=== PATIENT | female | born 1935 | race Hispanic/Latino ===

== ENCOUNTER → 2018-12-10 | Outpatient (CLI) | payer MEDICARE ==
[~2018-12-10] MED LIST: LIDOCAINE HCL 2% JELLY 5 ML ONE
[2018-12-10 12:17] VITALS: BP 184/114
== END | disposition home or self-care (01) ==
LOC: WHH 09:30
PROVIDERS: ATTEND Family Medicine
DX: E11.621 Type 2 diabetes mellitus with foot ulcer (principal); L97.512 Non-pressure chronic ulcer of other part of right foot with fat layer exposed; I70.235 Atherosclerosis of native arteries of right leg with ulceration of other part of foot; E11.52 Type 2 diabetes mellitus with diabetic peripheral angiopathy with gangrene; I96 Gangrene, not elsewhere classified; I10 Essential (primary) hypertension; E78.5 Hyperlipidemia, unspecified; E07.9 Disorder of thyroid, unspecified; Z88.0 Allergy status to penicillin
CPT/HCPCS: 11042; 82948; A4450; A6021; G0463

== ENCOUNTER → 2018-12-12 | Outpatient (CLI) | payer MEDICARE | END | disposition home or self-care (01) | LOC: RAH 10:23 | PROVIDERS: ATTEND Family Medicine | DX: E11.621 Type 2 diabetes mellitus with foot ulcer (principal); L97.519 Non-pressure chronic ulcer of other part of right foot with unspecified severity; M89.8X7 Other specified disorders of bone, ankle and foot | CPT/HCPCS: 73718 ==

== ENCOUNTER → 2018-12-17 | Outpatient (CLI) | payer MEDICARE ==
[2018-12-17 11:19] LABS: BASOPHILS % (AUTO) 0.6 % (0.0-5.0); EOSINOPHILS % (AUTO) 2.5 % (0.0-8.0); HEMATOCRIT 29.7 % (36-48); LYMPHOCYTES % (AUTO) 25.5 % (21.0-51.0); MEAN CORPUSCULAR HGB CONC 33.4 g/dL (32.0-36.0); MEAN CORPUSCULAR VOLUME 89.8 fL (79-99); MONOCYTES % (AUTO) 5.6 % (3.0-13.0); NEUTROPHILS % (AUTO) 65.8 % (40.0-77.0); PLATELET COUNT (AUTO) 284 K/uL (130-400); RED CELL DISTRIBUTION WIDTH 14.3 % (11.0-15.5); WHITE BLOOD COUNT (AUTO) 9.6 K/uL (4.8-10.8)
[2018-12-17 11:27] LABS: HEMOGLOBIN A1C 10.6 % (4.0-6.0)
[2018-12-17 11:38] LABS: ALBUMIN 2.9 g/dL (3.5-5.0); BILIRUBIN,TOTAL 0.3 mg/dL (0.2-1.0); CREATININE 1.5 mg/dL (0.5-1.5); CRP QUANTITATIVE 34.4 mg/L (0.00-9.0); POTASSIUM 4.4 mmol/L (3.5-5.1); TOTAL PROTEIN, SERUM 7.9 g/dL (6.0-8.3)
[2018-12-17 12:35] LABS: ERYTHROCYTE SEDIMENTATION RATE 111 MM/HR (0-30)
[2018-12-17 12:58] VITALS: BP 186/59
== END | disposition home or self-care (01) ==
LOC: WHH 08:30
PROVIDERS: ATTEND Family Medicine
DX: E11.621 Type 2 diabetes mellitus with foot ulcer (principal); L97.511 Non-pressure chronic ulcer of other part of right foot limited to breakdown of skin; I70.235 Atherosclerosis of native arteries of right leg with ulceration of other part of foot; M89.8X7 Other specified disorders of bone, ankle and foot; E11.52 Type 2 diabetes mellitus with diabetic peripheral angiopathy with gangrene; I96 Gangrene, not elsewhere classified; I10 Essential (primary) hypertension; E78.5 Hyperlipidemia, unspecified; E07.9 Disorder of thyroid, unspecified; Z88.0 Allergy status to penicillin
CPT/HCPCS: 36415; 71046; 80053; 83036; 85025; 85651; 86140; 93005; G0463

== ENCOUNTER 2018-12-19 09:09 | Emergency (ER) | payer MEDICARE | END 2018-12-19 10:12 | disposition home or self-care (01) | LOC: EDH 09:09 | DX: M25.562 Pain in left knee (principal); E11.9 Type 2 diabetes mellitus without complications; I10 Essential (primary) hypertension; X50.1XXA Overexertion from prolonged static or awkward postures, initial encounter; Y93.89 Activity, other specified; Y92.89 Other specified places as the place of occurrence of the external cause; Y99.8 Other external cause status | CPT/HCPCS: 73562 ==

== ENCOUNTER → 2018-12-24 | Outpatient (CLI) | payer MEDICARE ==
[~2018-12-24] MED LIST changes: +ACET-2247 PO; +AMLO5TAB9 PO; +ASPI-555 PO; +ATEN25TA PO; +ATENOLOL 25 MG TABLET ONE; +CHLO25TA3 PO; +CLON0.1T2 PO; +DOCU-275 PO; +FERR325T22 PO; +LEVO100T12 PO; -LIDOCAINE HCL 2% JELLY 5 ML ONE; +LIDOCAINE/PRILOCAINE CREAM 5GM TUBE TP ONE; +LISI10TA7 PO; +METF-444 PO; +PIOG30TA70 PO; +POLY17PO4 PO; +renavite PO
[2018-12-24 14:51] VITALS: BP 156/53
== END | disposition home or self-care (01) ==
LOC: WHH 13:00
PROVIDERS: ATTEND Family Medicine
DX: E11.621 Type 2 diabetes mellitus with foot ulcer (principal); L97.512 Non-pressure chronic ulcer of other part of right foot with fat layer exposed; I70.235 Atherosclerosis of native arteries of right leg with ulceration of other part of foot; E11.52 Type 2 diabetes mellitus with diabetic peripheral angiopathy with gangrene; I96 Gangrene, not elsewhere classified; E11.69 Type 2 diabetes mellitus with other specified complication; M86.9 Osteomyelitis, unspecified; I10 Essential (primary) hypertension; E78.5 Hyperlipidemia, unspecified; E07.9 Disorder of thyroid, unspecified; M89.8X7 Other specified disorders of bone, ankle and foot
CPT/HCPCS: 11042; J3490

== ENCOUNTER → 2018-12-26 | Outpatient (CLI) | payer MEDICARE ==
[~2018-12-26] MED LIST changes: -ACET-2247 PO; -AMLO5TAB9 PO; -ASPI-555 PO; -ATEN25TA PO; -ATENOLOL 25 MG TABLET ONE; -CHLO25TA3 PO; -CLON0.1T2 PO; -DOCU-275 PO; -FERR325T22 PO; -LEVO100T12 PO; -LISI10TA7 PO; -METF-444 PO; -PIOG30TA70 PO; -POLY17PO4 PO; -renavite PO
[2018-12-26 13:54] VITALS: BP 153/47
== END | disposition home or self-care (01) ==
LOC: WHH 10:30
PROVIDERS: ATTEND Podiatrist Foot & Ankle Surgery
DX: E11.621 Type 2 diabetes mellitus with foot ulcer (principal); L97.511 Non-pressure chronic ulcer of other part of right foot limited to breakdown of skin; E11.52 Type 2 diabetes mellitus with diabetic peripheral angiopathy with gangrene; I96 Gangrene, not elsewhere classified; E11.69 Type 2 diabetes mellitus with other specified complication; M86.9 Osteomyelitis, unspecified; I10 Essential (primary) hypertension; E07.9 Disorder of thyroid, unspecified; E78.5 Hyperlipidemia, unspecified; M89.8X7 Other specified disorders of bone, ankle and foot; Z88.0 Allergy status to penicillin
CPT/HCPCS: G0463; J3490

== ENCOUNTER → 2018-12-31 | Outpatient (CLI) | payer MEDICARE ==
[2018-12-31 11:15] VITALS: BP 185/68
== END | disposition home or self-care (01) ==
LOC: WHH 10:00
PROVIDERS: ATTEND Family Medicine
DX: E11.621 Type 2 diabetes mellitus with foot ulcer (principal); L97.511 Non-pressure chronic ulcer of other part of right foot limited to breakdown of skin; E11.52 Type 2 diabetes mellitus with diabetic peripheral angiopathy with gangrene; I96 Gangrene, not elsewhere classified; E11.69 Type 2 diabetes mellitus with other specified complication; M86.9 Osteomyelitis, unspecified; I10 Essential (primary) hypertension; E78.5 Hyperlipidemia, unspecified; E07.9 Disorder of thyroid, unspecified; M89.8X7 Other specified disorders of bone, ankle and foot; Z88.0 Allergy status to penicillin
CPT/HCPCS: G0463

== ENCOUNTER → 2019-01-02 | Outpatient (CLI) | payer MEDICARE ==
[~2019-01-02] MED LIST changes: +AMLO5TAB9 PO; +ASPI-555 PO; +CHLO25TA3 PO; +FERR325T22 PO; +LEVO100T12 PO; -LIDOCAINE/PRILOCAINE CREAM 5GM TUBE TP ONE; +METF-444 PO; +PIOG30TA70 PO; +renavite PO
[2019-01-02 13:14] VITALS: BP 162/63
== END | disposition home or self-care (01) ==
LOC: WHH 09:25
PROVIDERS: ATTEND Podiatrist Foot & Ankle Surgery
DX: E11.621 Type 2 diabetes mellitus with foot ulcer (principal); L97.511 Non-pressure chronic ulcer of other part of right foot limited to breakdown of skin; E11.52 Type 2 diabetes mellitus with diabetic peripheral angiopathy with gangrene; I96 Gangrene, not elsewhere classified; E11.69 Type 2 diabetes mellitus with other specified complication; M86.9 Osteomyelitis, unspecified; E07.9 Disorder of thyroid, unspecified; E78.5 Hyperlipidemia, unspecified; M89.8X7 Other specified disorders of bone, ankle and foot; Z88.0 Allergy status to penicillin
CPT/HCPCS: G0463

== ENCOUNTER 2019-01-04 06:19 | Day surgery (SDC) | payer MEDICARE ==
[2019-01-02 11:58] LABS: BASOPHILS % (AUTO) 0.8 % (0.0-5.0); EOSINOPHILS % (AUTO) 1.6 % (0.0-8.0); HEMATOCRIT 26.6 % (36-48); LYMPHOCYTES % (AUTO) 17.4 % (21.0-51.0); MEAN CORPUSCULAR HEMOGLOBIN 29.6 pg (27.0-33.0); MEAN CORPUSCULAR HGB CONC 33.3 g/dL (32.0-36.0); MEAN CORPUSCULAR VOLUME 89.1 fL (79-99); MONOCYTES % (AUTO) 5.4 % (3.0-13.0); NEUTROPHILS % (AUTO) 74.8 % (40.0-77.0); PLATELET COUNT (AUTO) 465 K/uL (130-400); RED BLOOD CELL COUNT(AUTO) 2.98 MIL/uL (4.00-5.50); RED CELL DISTRIBUTION WIDTH 13.6 % (11.0-15.5); WHITE BLOOD COUNT (AUTO) 11.4 K/uL (4.8-10.8)
[2019-01-02 12:04] LABS: CREATININE 1.6 mg/dL (0.5-1.5)
[2019-01-02 13:06] VITALS: BP 145/69
--- NOTE | 2019-01-03 14:28 | NUR ---
LABS ABNORMAL LABS FAXED TO DR. BELCHER OFFICE PER HIS REQUEST, MESSAGE LEFT WITH THOMAS, AWAITING FOR FURTHER ORDERS
--- NOTE | 2019-01-03 14:32 | NUR ---
LABS PER DR. BELCHER NO FURTHER ORDERS ON THE LABS REPORTED. OK TO PROCEED WITH SX
--- NOTE | 2019-01-03 14:40 | NUR ---
ABN EKG REPORTED TO JESUS ALBERTO DUBOIS, NO NEW ORDERS.
--- NOTE | 2019-01-03 15:18 | NUR ---
reported abnormal labs to Doctor Wolf wbc 11.34, h/h 8.8/26.6, plt 465, na 134, bun 22, assistant associate full professor 1.6, gfr 33, no new orders okay to proceed from Anesthesia point of view.
[2019-01-04] VITALS (10 sets, daily range): BP systolic 135–188; BP diastolic 48–69
[~2019-01-04] VITALS: Ht 165.1 cm; Wt 56.7 kg
[2019-01-04] MEDS ORDERED: CLINDAMYCIN 900 MG/D5% WATER 50 ML IV ONE (06:31)
[2019-01-04] MEDS ORDERED: SODIUM CHLORIDE 0.9% 1000ML 1,000 ML IV ONE ×2 (06:31→07:50)
[2019-01-04] MEDS ORDERED: LIDOCAINE HCL 1% MDV 50ML VIAL ONE (06:33)
[2019-01-04] MEDS ORDERED: BUPIVACAINE/PF 0.5% 10ML VIAL ONE (06:33)
[2019-01-04] MEDS ORDERED: FENTANYL CITRATE PF 50 MCG/1 ML 2ML VIAL ONE (06:57)
[2019-01-04] MEDS ORDERED: MIDAZOLAM HCL 1 MG/ML 2ML VIAL ONE ×2 (06:57→07:03)
[2019-01-04] MEDS ORDERED: PROPOFOL 10 MG/ML 20ML VIAL IV ONE (06:57)
[2019-01-04] MEDS ORDERED: ONDANSETRON HCL 4 MG/2 ML VIAL ONE (07:21)
[2019-01-04] MEDS ORDERED: METF-444 PO (07:47)
[2019-01-04] MEDS ORDERED: ASPI-555 PO (07:47)
[2019-01-04] MEDS ORDERED: FERR325T22 PO (07:47)
[2019-01-04] MEDS ORDERED: PIOG30TA70 PO (07:47)
[2019-01-04] MEDS ORDERED: LEVO100T12 PO (07:47)
[2019-01-04] MEDS ORDERED: CHLO25TA3 PO (07:47)
[2019-01-04] MEDS ORDERED: AMLO5TAB9 PO (07:47)
[2019-01-04] MEDS ORDERED: renavite PO (07:47)
--- NOTE | 2019-01-04 08:15 | NUR ---
JO DOUGLAS INFORMED OF PT'S GLUCOSE LEVEL 233. NO NEW ORDERS GIVEN. HAVE PT TAKE HER HOME MEDS. Addendum: 01/04/19 at 0815 by LUCÍA ALFONSO RN RN Amended: Links added.
--- NOTE | 2019-01-04 09:02 | NUR ---
SPOKE WITH MICHEAL TYSON AT [facility]. DR. Lu/Judi INSTRUCTIONS FAX AND VERBAL ORDERS GIVEN TO NURSE.
--- NOTE | 2019-01-04 09:20 | NUR ---
PT LEFT VIA WHEELCHAIR IN PVT CAR. D/C INSTRUCTIONS GIVEN TO DAUGHTER ALONG WITH RX SCRIPT. DRESSING IS DRY AND INTACT POPLITEAL PULSE TO THE RT. LOWER LEG INTACT.
== END 2019-01-04 09:20 | disposition home or self-care (01) ==
LOC: DAH 06:19
PROVIDERS: ATTEND Podiatrist Foot & Ankle Surgery
DX: I96 Gangrene, not elsewhere classified (principal); E11.621 Type 2 diabetes mellitus with foot ulcer; E11.52 Type 2 diabetes mellitus with diabetic peripheral angiopathy with gangrene; I10 Essential (primary) hypertension; E78.5 Hyperlipidemia, unspecified; E03.9 Hypothyroidism, unspecified; Z88.0 Allergy status to penicillin; Z79.82 Long term (current) use of aspirin; Z79.899 Other long term (current) drug therapy; Z79.84 Long term (current) use of oral hypoglycemic drugs; Z90.49 Acquired absence of other specified parts of digestive tract
CPT/HCPCS: 28810; 28820; 36415; 80048; 82948 ×2; 85025; 87070; 87076; 87077; 87186; 87205; 93005; A4930; A6260; A6446; J2250 ×2; J2405; J2704; J3010; J3490 ×3; J7030 ×2

== ENCOUNTER → 2019-01-07 | Outpatient (CLI) | payer MEDICARE ==
[2019-01-07 09:21] VITALS: BP 178/57
== END | disposition home or self-care (01) ==
LOC: WHH 08:45
PROVIDERS: ATTEND Family Medicine
DX: T87.89 Other complications of amputation stump (principal); E11.621 Type 2 diabetes mellitus with foot ulcer; L97.511 Non-pressure chronic ulcer of other part of right foot limited to breakdown of skin; E11.52 Type 2 diabetes mellitus with diabetic peripheral angiopathy with gangrene; I96 Gangrene, not elsewhere classified; E11.69 Type 2 diabetes mellitus with other specified complication; M86.9 Osteomyelitis, unspecified; I10 Essential (primary) hypertension; E78.5 Hyperlipidemia, unspecified; E07.9 Disorder of thyroid, unspecified; M89.8X7 Other specified disorders of bone, ankle and foot; Z88.0 Allergy status to penicillin; Y83.5 Amputation of limb(s) as the cause of abnormal reaction of the patient, or of later complication, without mention of misadventure at the time of the procedure
CPT/HCPCS: G0463

== ENCOUNTER → 2019-01-09 | Outpatient (CLI) | payer MEDICARE ==
[~2019-01-09] MED LIST changes: +ACET-2247 PO; +ATEN25TA PO; +CLON0.1T2 PO; +DOCU-275 PO; +LISI10TA7 PO; +POLY17PO4 PO
[2019-01-09 13:57] VITALS: BP 164/64
== END | disposition home or self-care (01) ==
LOC: WHH 11:45
PROVIDERS: ATTEND Podiatrist Foot & Ankle Surgery
DX: T86.828 Other complications of skin graft (allograft) (autograft) (principal); E11.621 Type 2 diabetes mellitus with foot ulcer; L97.511 Non-pressure chronic ulcer of other part of right foot limited to breakdown of skin; E11.52 Type 2 diabetes mellitus with diabetic peripheral angiopathy with gangrene; I96 Gangrene, not elsewhere classified; E11.69 Type 2 diabetes mellitus with other specified complication; M86.9 Osteomyelitis, unspecified; I10 Essential (primary) hypertension; E78.5 Hyperlipidemia, unspecified; E07.9 Disorder of thyroid, unspecified; M89.8X7 Other specified disorders of bone, ankle and foot; Z88.0 Allergy status to penicillin; Z89.421 Acquired absence of other right toe(s); Y83.2 Surgical operation with anastomosis, bypass or graft as the cause of abnormal reaction of the patient, or of later complication, without mention of misadventure at the time of the procedure
CPT/HCPCS: G0463

== ENCOUNTER → 2019-01-16 | Outpatient (CLI) | payer MEDICARE ==
[2019-01-16 09:30] VITALS: BP 153/54
== END | disposition home or self-care (01) ==
LOC: WHH 09:15
PROVIDERS: ATTEND Podiatrist Foot & Ankle Surgery
DX: T87.89 Other complications of amputation stump (principal); E11.621 Type 2 diabetes mellitus with foot ulcer; L97.511 Non-pressure chronic ulcer of other part of right foot limited to breakdown of skin; E11.52 Type 2 diabetes mellitus with diabetic peripheral angiopathy with gangrene; E11.69 Type 2 diabetes mellitus with other specified complication; I96 Gangrene, not elsewhere classified; M86.9 Osteomyelitis, unspecified; I10 Essential (primary) hypertension; E78.5 Hyperlipidemia, unspecified; E07.9 Disorder of thyroid, unspecified; M89.8X7 Other specified disorders of bone, ankle and foot; Z88.0 Allergy status to penicillin; Z89.421 Acquired absence of other right toe(s); Y83.5 Amputation of limb(s) as the cause of abnormal reaction of the patient, or of later complication, without mention of misadventure at the time of the procedure
CPT/HCPCS: G0463

== ENCOUNTER 2019-01-17 09:26 | Inpatient (IN) | payer MEDICARE ==
[~2019-01-17] VITALS: Ht 162.6 cm; Wt 56.2 kg
[~2019-01-17 09:26] MED LIST changes: -ACET-2247 PO; -ATEN25TA PO; -CLON0.1T2 PO; -DOCU-275 PO; -LISI10TA7 PO; -POLY17PO4 PO
[2019-01-17 10:08] LABS: BASOPHILS % (AUTO) 0.6 % (0.0-5.0); EOSINOPHILS % (AUTO) 0.9 % (0.0-8.0); HEMATOCRIT 24.9 % (36-48); LYMPHOCYTES % (AUTO) 12.4 % (21.0-51.0); MEAN CORPUSCULAR HEMOGLOBIN 28.7 pg (27.0-33.0); MEAN CORPUSCULAR HGB CONC 33.4 g/dL (32.0-36.0); MEAN CORPUSCULAR VOLUME 85.9 fL (79-99); MONOCYTES % (AUTO) 4.9 % (3.0-13.0); NEUTROPHILS % (AUTO) 81.2 % (40.0-77.0); PLATELET COUNT (AUTO) 608 K/uL (130-400); RED BLOOD CELL COUNT(AUTO) 2.89 MIL/uL (4.00-5.50); RED CELL DISTRIBUTION WIDTH 14.2 % (11.0-15.5)
[2019-01-17 10:14] LABS: CREATININE 1.4 mg/dL (0.5-1.5); POTASSIUM 3.5 mmol/L (3.5-5.1)
[2019-01-17 10:18] LABS: ALBUMIN 2.4 g/dL (3.5-5.0); BILIRUBIN,DIRECT 0.1 mg/dL (0.0-0.3); BILIRUBIN,TOTAL 0.3 mg/dL (0.2-1.0); TOTAL PROTEIN, SERUM 8.6 g/dL (6.0-8.3)
[2019-01-17 10:49] LABS: INR 0.97 (0.85-1.15); PARTIAL THROMBOPLASTIN TIME 41.2 SEC (26.3-35.5); PROTHROMBIN TIME 10.2 SEC (9.6-11.6)
[2019-01-17 11:15] LABS: ERYTHROCYTE SEDIMENTATION RATE > 150 MM/HR (0-30)
[2019-01-17] MEDS ORDERED: INSULIN HUMULIN R 100 UNIT/ML 3ML ONE (13:37)
[2019-01-17] MEDS ORDERED: MORPHINE SULFATE 2 MG/ML 1ML SYG ONE (14:07)
[2019-01-17 14:55] VITALS: BP 159/69
[2019-01-17] MEDS ORDERED: NITROGLYCERIN 0.4 MG SL TAB SL PRN (15:15)
[2019-01-17] MEDS ORDERED: POTASSIUM CHLORIDE 10% ELIXIR 20 MEQ/15 ML UDCUP PO PRN ×2 (15:15→18:15)
[2019-01-17] MEDS ORDERED: POTASSIUM CHLORIDE 20 MEQ ERTAB PO PRN ×2 (15:15→18:15)
[2019-01-17] MEDS ORDERED: GLUCAGON 1MG KIT 1 MG ML IM PRN ×2 (15:15→18:15)
[2019-01-17] MEDS ORDERED: DiphenhydrAMINE HCL 50 MG/ML VIAL IVP PRN (15:15)
[2019-01-17] MEDS ORDERED: DEXTROSE 50%-WATER 50 ML DISP.SYRIN IV PRN ×2 (15:15→18:15)
[2019-01-17] MEDS ORDERED: ONDANSETRON HCL 4 MG/2 ML VIAL IVP PRN (15:15)
[2019-01-17] MEDS ORDERED: LIDOCAINE HCL-MPF 1% 2ML VIAL IJ PRN (15:15)
[2019-01-17] MEDS ORDERED: LACTULOSE 20 GM/30 ML UDCUP PO PRN (15:15)
[2019-01-17] MEDS ORDERED: DIPHENHYDRAMINE HCL 25 MG CAPSULE PO PRN (15:15)
[2019-01-17] MEDS ORDERED: ACETAMINOPHEN 325 MG TAB PO PRN ×2 (15:15)
[2019-01-17] MEDS: SODIUM CHLORIDE 0.9% 1000ML 1,000 ML IV SCH (15:30)
[2019-01-17] MEDS ORDERED: VANCOMYCIN PROTOCOL PER PHARMACY IV SCH (15:45)
[2019-01-17] MEDS: INSULIN R PO SSI SQ SCH ×2 (16:30→20:49)
[2019-01-17] MEDS ORDERED: PHARMACY COMMUNICATION MISC SCH ×3 (16:30→18:15)
[2019-01-17] MEDS: MORPHINE SULFATE 2 MG/ML 1ML SYG IVP PRN ×2 (17:16→22:03)
[2019-01-17] MEDS ORDERED: VANCOMYCIN 750MG + NS 250 ML IV SCH ×2 (17:45)
[2019-01-17] MEDS ORDERED: POTASSIUM CHLORIDE 10MEQ/100ML 100 ML IV PRN (18:15)
--- NOTE | 2019-01-17 18:31 | NUR ---
JITENDRA EUBANKS SERVICE STATION HELPER AWARE OF THAT THERE IS NO ORTHOPEDIC INTERIOR DESIGN INSTRUCTOR UNTIL 01/21/19.
--- NOTE | 2019-01-17 18:36 | NUR ---
ACCORDING TO ER, DR BELCHER IS AWARE OF THE CONSULT. WAITING TO COME AND SEE PT.
[2019-01-17 19:37] VITALS: BP 187/75
[2019-01-17] MEDS: CLONIDINE HCL 0.1 MG TABLET PO PRN (20:46)
[2019-01-17] MEDS ORDERED: INSULIN HUMULIN R 100 UNIT/ML 3ML SQ SCH (21:00)
[2019-01-17 21:45] VITALS: BP 145/72
[2019-01-18] VITALS: BP 122/53
[2019-01-18 04:00] VITALS: BP 147/53
[2019-01-18] MEDS: SODIUM CHLORIDE 0.9% 1000ML 1,000 ML IV SCH ×2 (04:07→18:10)
[2019-01-18 06:01] LABS: BASOPHILS % (AUTO) 0.5 % (0.0-5.0); EOSINOPHILS % (AUTO) 1.4 % (0.0-8.0)
[2019-01-18] MEDS: INSULIN R PO SSI SQ SCH ×4 (06:04→20:37)
[2019-01-18 06:14] LABS: CREATININE 1.3 mg/dL (0.5-1.5); POTASSIUM 3.6 mmol/L (3.5-5.1)
[2019-01-18 06:42] LABS: LYMPHOCYTES % (AUTO) 17.7 % (21.0-51.0); MEAN CORPUSCULAR HEMOGLOBIN 29.5 pg (27.0-33.0); MEAN CORPUSCULAR VOLUME 86.8 fL (79-99); MONOCYTES % (AUTO) 7.3 % (3.0-13.0); NEUTROPHILS % (AUTO) 73.1 % (40.0-77.0); PLATELET COUNT (AUTO) 449 K/uL (130-400); RED BLOOD CELL COUNT(AUTO) 2.32 MIL/uL (4.00-5.50); RED CELL DISTRIBUTION WIDTH 14.3 % (11.0-15.5)
[2019-01-18 06:46] LABS: HEMATOCRIT 20.1 % (36-48)
--- NOTE | 2019-01-18 06:53 | NUR ---
Spoke to Blata regarding lab results of 6.8 and 20.1 H and H. 1 unit of PRBC to be given.
[2019-01-18 08:00] VITALS: BP 155/70
[2019-01-18] MEDS ORDERED: SODIUM CHLORIDE 0.9% 250 ML IV ONE (09:30)
[2019-01-18] MEDS: FAMOTIDINE 20MG TAB 20 MG TAB PO SCH (09:44)
[2019-01-18 11:39] VITALS: BP 150/59
--- NOTE | 2019-01-18 12:26 | NUR ---
DC PLAN PER PATIENT, STATES SHE REQUIRES SOME ASSISTANCE WITH ADLS, LIVES WITH SPOUSE, HAS PROVIDER FOR 5HR PER DAY MON-MONDAY ONLY, HAS A CANE AND WHEELCHAIR AND FEELS SAFE TO RETURN HOME. Addendum: 01/18/19 at 1227 by ANA GIFFORD RN Amended: Links added.
[2019-01-18] MEDS: MORPHINE SULFATE 2 MG/ML 1ML SYG IVP PRN (13:27)
--- NOTE | 2019-01-18 14:14 | NUR ---
[id number] had pt's sign IM Letter,Faxed IM Letter signed then faxed to [phone].Placed in chart under consent tab
[2019-01-18] MEDS: TRAMADOL /APAP 37.5MG/325MG TAB PO PRN (15:34)
[2019-01-18 15:56] VITALS: BP 177/60
--- NOTE | 2019-01-18 15:57 | NUR ---
DR GHOTRA CONSULTED DR GHOTRA CONSULTED FOR R 2ND TOE GANGRENE FOR POSSIBLE AMPUTATION. STATED HE WILL BE IN TO SEE PT
[2019-01-18] MEDS: VANCOMYCIN 500MG+NS 100ML 100 ML IV SCH (18:19)
[2019-01-18 20:09] VITALS: BP 175/80
[2019-01-18] MEDS: CLONIDINE HCL 0.1 MG TABLET PO PRN (20:50)
[2019-01-19 00:09] VITALS: BP 162/72
[2019-01-19] MEDS: TRAMADOL /APAP 37.5MG/325MG TAB PO PRN ×3 (02:24→21:20)
[2019-01-19 04:09] VITALS: BP 172/68
[2019-01-19 05:41] LABS: HEMATOCRIT 30.2 % (36-48); MEAN CORPUSCULAR HEMOGLOBIN 29.8 pg (27.0-33.0); MEAN CORPUSCULAR HGB CONC 33.7 g/dL (32.0-36.0); MEAN CORPUSCULAR VOLUME 88.3 fL (79-99); PLATELET COUNT (AUTO) 436 K/uL (130-400); RED BLOOD CELL COUNT(AUTO) 3.42 MIL/uL (4.00-5.50); RED CELL DISTRIBUTION WIDTH 14.6 % (11.0-15.5); WHITE BLOOD COUNT (AUTO) 11.3 K/uL (4.8-10.8)
[2019-01-19 05:48] LABS: CREATININE 1.3 mg/dL (0.5-1.5); POTASSIUM 3.3 mmol/L (3.5-5.1)
[2019-01-19] MEDS: CLONIDINE HCL 0.1 MG TABLET PO PRN (06:41)
[2019-01-19] MEDS: INSULIN R PO SSI SQ SCH ×4 (06:43→21:24)
[2019-01-19] MEDS: SODIUM CHLORIDE 0.9% 1000ML 1,000 ML IV SCH ×2 (07:30→20:50)
[2019-01-19 08:00] VITALS: BP 129/66
[2019-01-19] MEDS: FAMOTIDINE 20MG TAB 20 MG TAB PO SCH (08:11)
[2019-01-19] MEDS: POTASSIUM CHLORIDE 20MEQ/100ML 100 ML IV PRN ×2 (08:14→17:11)
[2019-01-19] MEDS: MORPHINE SULFATE 2 MG/ML 1ML SYG IVP PRN (08:18)
--- NOTE | 2019-01-19 08:50 | NUR ---
DR GHOTRA IN FACILITY DR GHOTRA IN FACILITY TO SEE PT. STATED PT IS CANDIDATE FOR POSSIBLE SX. THIS NURSE AND MD EXPLAINED PROCEDURE AND RISKS TO PATIENT. PE DR GHOTRA PLEASE ORDER TRANSCUTANEOUS 02 SATURATION OF RLE. NOTED AND CARRIED OUT
--- NOTE | 2019-01-19 11:26 | NUR ---
DR WATSON (SAFETY INSTRUCTOR SCREENER AND BLENDER) CONSULTED PER Gloria MOORE ([facility]) ORDER. PER DR WATSON- PT CAN FOLLOW UP WITH OBGYN OF CHOICE REGARDING POST MENOPAUSAL BLEEDING. STATED SINCE IT ONLY OCCURED X 1 IT HAS NO CORELATION WITH ANEMIA ISSUES. CARRIED OUT
[2019-01-19 12:00] VITALS: BP 156/61
--- NOTE | 2019-01-19 15:28 | NUR ---
TRANSCUTANEOUS OXYGEN SAT ORDER REGARDING ORDER- PER CHARGE NURSE, EXAM WILL NOT BE AVAILABLE UNTIL MONDAY DUE TO WOUND CARE CENTER BEING CLOSED. PLACED CALL TO DR GHOTRA AND LEFT MESSAGE. PENDING CB
[2019-01-19 16:00] VITALS: BP 188/70
[2019-01-19] MEDS: VANCOMYCIN 500MG+NS 100ML 100 ML IV SCH (17:10)
[2019-01-19 20:20] VITALS: BP 184/75
[2019-01-19] MEDS: KETOROLAC TROMETHAMINE 15MG/ML IV PRN (22:50)
[2019-01-20 00:18] VITALS: BP 154/72
[2019-01-20 04:12] VITALS: BP 183/71
[2019-01-20] MEDS: CLONIDINE HCL 0.1 MG TABLET PO PRN ×2 (05:26→20:56)
[2019-01-20 05:48] LABS: BASOPHILS % (AUTO) 0.6 % (0.0-5.0); EOSINOPHILS % (AUTO) 0.8 % (0.0-8.0); HEMATOCRIT 30.4 % (36-48); LYMPHOCYTES % (AUTO) 15.2 % (21.0-51.0); MEAN CORPUSCULAR HEMOGLOBIN 30.5 pg (27.0-33.0); MEAN CORPUSCULAR HGB CONC 34.3 g/dL (32.0-36.0); MEAN CORPUSCULAR VOLUME 88.7 fL (79-99); MONOCYTES % (AUTO) 5.7 % (3.0-13.0); NEUTROPHILS % (AUTO) 77.7 % (40.0-77.0); PLATELET COUNT (AUTO) 444 K/uL (130-400); RED BLOOD CELL COUNT(AUTO) 3.43 MIL/uL (4.00-5.50); RED CELL DISTRIBUTION WIDTH 14.7 % (11.0-15.5)
[2019-01-20 06:08] LABS: ALBUMIN 1.8 g/dL (3.5-5.0); BILIRUBIN,TOTAL 0.3 mg/dL (0.2-1.0); CREATININE 1.1 mg/dL (0.5-1.5); INR 0.99 (0.85-1.15); MAGNESIUM 1.6 mg/dL (1.80-2.40); PARTIAL THROMBOPLASTIN TIME 33.4 SEC (26.3-35.5); POTASSIUM 3.9 mmol/L (3.5-5.1); PROTHROMBIN TIME 10.4 SEC (9.6-11.6); TOTAL PROTEIN, SERUM 6.7 g/dL (6.0-8.3)
[2019-01-20] MEDS: INSULIN R PO SSI SQ SCH ×2 (07:30→12:16)
[2019-01-20] MEDS: SODIUM CHLORIDE 0.9% 1000ML 1,000 ML IV SCH (07:32)
[2019-01-20] MEDS: FAMOTIDINE 20MG TAB 20 MG TAB PO SCH (07:34)
[2019-01-20] MEDS: TRAMADOL /APAP 37.5MG/325MG TAB PO PRN ×2 (07:34→18:04)
[2019-01-20 08:00] VITALS: BP 161/76
[2019-01-20] MEDS ORDERED: HYDRALAZINE HCL 20 MG/ML VIAL IM PRN (11:45)
[2019-01-20 12:00] VITALS: BP 164/75
[2019-01-20] MEDS ORDERED: COMPOUND IV REFRIGERATED 1 EACH IVSOLN MISC PRN (14:00)
[2019-01-20 16:00] VITALS: BP 184/80
[2019-01-20] MEDS: INSULIN HUMULIN R 100 UNIT/ML 3ML SQ SCH ×2 (16:30→21:00)
[2019-01-20] MEDS: VANCOMYCIN 750MG + NS 250 ML IV SCH ×2 (17:59)
[2019-01-20 19:00] VITALS: BP 183/70
[2019-01-21] VITALS (7 sets, daily range): BP systolic 148–177; BP diastolic 65–71
[2019-01-21] MEDS: HYDROCODONE/ACETAMINOPHEN 5/325 MG TAB PO PRN ×2 (00:39→22:47)
--- NOTE | 2019-01-21 06:00 | NUR ---
NOTE PATIENT REPORTS NO BM. (LAST BM 01/18) OFFERED HER LAXATIVE, BUT DECLINED. SAYS SHE WANTS TO WAIT TO HAVE TCOMS TEST DONE FIRST.
[2019-01-21] MEDS: SODIUM CHLORIDE 0.9% 1000ML 1,000 ML IV SCH ×2 (06:11→12:50)
[2019-01-21] MEDS: LEVOTHYROXINE 100 MCG TABLET PO SCH (06:11)
[2019-01-21] MEDS: INSULIN HUMULIN R 100 UNIT/ML 3ML SQ SCH ×4 (06:13→20:46)
[2019-01-21] MEDS: ASPIRIN 81 MG EC TAB PO SCH (08:24)
[2019-01-21] MEDS: AMLODIPINE BESYLATE 5 MG TAB PO SCH (08:25)
[2019-01-21] MEDS: FERROUS SULFATE 325 MG TABLET.DR PO SCH (08:25)
[2019-01-21] MEDS: FOLIC ACID/VITAMIN B COMP W-C 1 MG CAP/TAB PO SCH (08:25)
[2019-01-21] MEDS: FAMOTIDINE 20MG TAB 20 MG TAB PO SCH (08:25)
[2019-01-21] MEDS: HYDROCHLOROTHIAZIDE 25 MG TABLET PO SCH (08:25)
[2019-01-21] MEDS: TRAMADOL /APAP 37.5MG/325MG TAB PO PRN (08:25)
--- NOTE | 2019-01-21 09:20 | NUR ---
WOUND CARE R FOOT NECROTIC TOES CLEANED AND DRESSED WITH BETADINE CAST. PT TOLERATED WELL. MEDICATED PT BEFORE
--- NOTE | 2019-01-21 09:23 | NUR ---
[facility] CALL PLACED TO [facility]OUND [facility]ARE CENTER REGARDING [facility]. SPOKE TO BENJI, STATED THEY WILL BE BY IN AFTERNOON TO DO EXAM
--- NOTE | 2019-01-21 14:48 | NUR ---
[facility] EXAM COMPLETE - DR GHOTRA MADE AWARE. STATED HE WILL COME BY TO SEE RESULTS
[2019-01-21] MEDS: VANCOMYCIN 750MG + NS 250 ML IV SCH ×2 (18:01)
[2019-01-21] MEDS: DOCUSATE SODIUM 100 MG CAP PO SCH (20:36)
--- NOTE | 2019-01-21 20:36 | NUR ---
MEDS SHIFT ASSESSMENT DONE, PLEASE REFER TO CHART. DUE MEDS ADMINISTERED, TOLERATED WELL. INSTRUCTED TO BE NPO POST MN, VERBALIZES UNDERSTANDING. KEPT RESTED AND COMFORTABLE. CALL LIGHT WITHIN REACH. WILL MONITOR PT. Addendum: 01/22/19 at 0140 by MARVIN MERA RN RN Amended: Links added.
[2019-01-21] MEDS: CLONIDINE HCL 0.1 MG TABLET PO PRN (20:37)
--- NOTE | 2019-01-21 22:47 | NUR ---
PAIN PT CALLS FOR PAIN MEDICATION, CLAIMS OF PAINS ON HER RT FOOT. MEDICATED WITH NORCO PO. KEPT RESTED AND COMFORTABLE IN BED. WILL RE-ASSESS PT.
[2019-01-22] VITALS (25 sets, daily range): BP systolic 122–193; BP diastolic 48–83
--- NOTE | 2019-01-22 02:00 | NUR ---
ROUNDS PT RESTING WELL, FAIRLY ASLEEP WITH RESPIRATIONS EVEN AND UNLABORED. NO NOTED DISTRESS. KEPT UNDISTURBED FOR NOW. WILL MONITOR PT. CALL LIGHT WITHIN REACH. FAMILY ASLEEP AT BEDSIDE.
[2019-01-22] MEDS: SODIUM CHLORIDE 0.9% 1000ML 1,000 ML IV SCH ×2 (02:12→10:25)
--- NOTE | 2019-01-22 03:40 | NUR ---
PAGED PT'S BP ELEVATED AT 172/70, HR=66. PT DENIES ANY DISCOMFORT AT THIS TIME. ASYMPTOMATIC BUT PT IS ALREADY NPO FOR SX. PAGED SHOT MAN STRATEGIC BUYER FOR HOSPITALIST VIA ANSWERING SERVICE. AMY FALL CALLED BACK REFERRED PT'S PERSISTENTLY HIGH BP. HYDRALAZINE IM CHANGED TO IV BUT KEPT PARAMETER FOR SBP>180. WILL MONITOR PT.
--- NOTE | 2019-01-22 05:30 | NUR ---
PIV PT RESTING WELL IN BED, DENIES ANY PAINS NOR DISCOMFORT AT THIS TIME. INSERTED A SECOND PIV G20 TO RT FOREARM FOR SX. KEPT NPO FOR SX. KEPT COMFORTABLE IN BED. FOR MORE CARE. Addendum: 01/22/19 at 0620 by MARVIN MERA RN RN Amended: Links added.
[2019-01-22] MEDS: LEVOTHYROXINE 100 MCG TABLET PO SCH (05:34)
[2019-01-22] MEDS: FERROUS SULFATE 325 MG TABLET.DR PO SCH (05:34)
[2019-01-22] MEDS: INSULIN HUMULIN R 100 UNIT/ML 3ML SQ SCH ×4 (05:34→20:47)
[2019-01-22 05:51] LABS: HEMATOCRIT 31.5 % (36-48); MEAN CORPUSCULAR HEMOGLOBIN 29.9 pg (27.0-33.0); MEAN CORPUSCULAR HGB CONC 33.4 g/dL (32.0-36.0); MEAN CORPUSCULAR VOLUME 89.5 fL (79-99); PLATELET COUNT (AUTO) 499 K/uL (130-400); RED BLOOD CELL COUNT(AUTO) 3.53 MIL/uL (4.00-5.50); RED CELL DISTRIBUTION WIDTH 15.2 % (11.0-15.5); WHITE BLOOD COUNT (AUTO) 11.9 K/uL (4.8-10.8)
[2019-01-22 06:04] LABS: CREATININE 1.4 mg/dL (0.5-1.5); POTASSIUM 3.3 mmol/L (3.5-5.1)
[2019-01-22] MEDS: POTASSIUM CHLORIDE 20MEQ/100ML 100 ML IV PRN (06:44)
[2019-01-22] MEDS: FAMOTIDINE 20MG TAB 20 MG TAB PO SCH (08:17)
[2019-01-22] MEDS: DOCUSATE SODIUM 100 MG CAP PO SCH ×2 (08:17→20:43)
[2019-01-22] MEDS: HYDROCHLOROTHIAZIDE 25 MG TABLET PO SCH (08:17)
[2019-01-22] MEDS: AMLODIPINE BESYLATE 5 MG TAB PO SCH (08:17)
[2019-01-22] MEDS: FOLIC ACID/VITAMIN B COMP W-C 1 MG CAP/TAB PO SCH (08:17)
[2019-01-22] MEDS: HYDRALAZINE HCL 20 MG/ML VIAL IV PRN (09:16)
[2019-01-22] MEDS ORDERED: DEXAMETHASONE SOD PHOSPHATE 10MG/ML 1ML VIAL ONE (10:02)
[2019-01-22] MEDS ORDERED: ONDANSETRON HCL 4 MG/2 ML VIAL ONE (10:02)
[2019-01-22] MEDS ORDERED: SUCCINYLCHOLINE 200MG/10ML SYR ONE (10:02)
[2019-01-22] MEDS ORDERED: LIDOCAINE PF 2% 5ML ABBOJECT ONE (10:02)
[2019-01-22] MEDS ORDERED: ROCURONIUM 10MG/1ML SYR 10 MG/ML ML ONE (10:03)
[2019-01-22] MEDS ORDERED: PROPOFOL 10 MG/ML 20ML VIAL IV ONE (10:03)
[2019-01-22] MEDS ORDERED: MIDAZOLAM HCL 1 MG/ML 2ML VIAL ONE (10:03)
[2019-01-22] MEDS ORDERED: GLYCOPYRROLATE 1 MG/5 ML SYRINGE ONE (10:03)
[2019-01-22] MEDS ORDERED: NEOSTIGMINE 5MG/5ML SYR IV ONE (10:03)
[2019-01-22] MEDS ORDERED: FENTANYL CITRATE PF 50 MCG/1 ML 2ML VIAL ONE (10:04)
[2019-01-22] MEDS ORDERED: EPHEDRINE SULFATE 50 MG/ML AMPULE ONE (10:37)
--- NOTE | 2019-01-22 10:45 | NUR ---
CONSULT: NOTIFIED PORFIRIO WOOD CRNA OF PATIENTS PAIN RATE OF 6 TO RIGHT FOOT AND REQUESTING PAIN MEDICATION, ORDERS GIVEN.
[2019-01-22] MEDS ORDERED: MEPERIDINE-PF 25 MG/ML SYG ONE (10:50)
[2019-01-22] MEDS ORDERED: MEPERIDINE-PF 25 MG/ML SYG IV SCH (11:15)
[2019-01-22] MEDS: ASPIRIN 81 MG EC TAB PO SCH (12:18)
--- NOTE | 2019-01-22 12:54 | NUR ---
RD NOTIFICATION DIET: NPO; PENDING PROCEDURE. LBM: 01/18 NOTED. PO INTAKE 50-75% AND HAS GOOD APPETITE PER FAMILY. LBM: PT UNABLE TO PASS BM IN SEVERAL DAYS NOW PER FAMILY. NO DIFFICULTY CHEWING OR SWALLOWING FOOD/ LIQUIDS. ADVANCE DIET TOLERATED WHEN MEDICALLY FEASIBLE OFFER ORAL SUPPLEMENTATION WITH MEALS RECOMMEND STOOL SOFTENER, PT UNABLE TO PASS BM IN SEVERAL DAYS RD WILL CONTINUE TO MONITOR AND F/U NEEDED Addendum: 01/22/19 at [address] Amended: Links added.
[2019-01-22] MEDS ORDERED: POTASSIUM CHLORIDE 20MEQ/100ML 100 ML IV PRN (13:24)
[2019-01-22] MEDS: VANCOMYCIN 750MG + NS 250 ML IV SCH ×2 (15:32)
[2019-01-22] MEDS: KETOROLAC TROMETHAMINE 15MG/ML IV PRN (15:43)
[2019-01-22] MEDS: CLINDAMYCIN 600 MG/D5% WATER 50 ML IV SCH ×2 (17:10→23:57)
--- NOTE | 2019-01-22 20:43 | NUR ---
MEDS SHIFT ASSESSMENT DONE, PLEASE REFER TO CHART. PT COMPLAINTS OF POST OP PAINS. DUE MEDS ADMINISTERED, NORCO PO GIVEN FOR PAINS. PT TOLERATED MEDS WELL. KEPT RESTED AND COMFORTABLE. WILL RE-ASSESS PT. CALL LIGHT WITHIN REACH. FAMILY AT BEDSIDE. Addendum: 01/23/19 at 0109 by MARVIN MERA RN RN Amended: Links added.
[2019-01-22] MEDS: HYDROCODONE/ACETAMINOPHEN 5/325 MG TAB PO PRN (20:44)
--- NOTE | 2019-01-22 22:00 | NUR ---
RE-ASSESS PT ALREADY ASLEEP WITH RESPIRATIONS EVEN AND UNLABORED. NO NOTED DISTRESS. KEPT UNDISTURBED FOR NOW. WILL CONTINUE TO MONITOR.
[2019-01-23] MEDS: SODIUM CHLORIDE 0.9% 1000ML 1,000 ML IV SCH ×3 (00:43→22:33)
--- NOTE | 2019-01-23 01:40 | NUR ---
SCAN PT HAS NOT URINATED SINCE BEFORE SX. PT CLAIMS SHE DOES NOT FEEL THE URGE TO URINATE. ABDOMEN SOFT AND BLADDER NOT DISTENDED UPON PALPATION. BLADDER SCAN DONE AND NOTED 347CC OF URINE IN THE BLADDER. WILL CONTINUE TO MONITOR. ENCOURAGED TO INCREASE FLUID INTAKE.
[2019-01-23 03:35] VITALS: BP 150/65
[2019-01-23 05:32] LABS: CREATININE 1.6 mg/dL (0.5-1.5); POTASSIUM 4.2 mmol/L (3.5-5.1)
[2019-01-23 05:38] LABS: BASOPHILS % (AUTO) 0.1 % (0.0-5.0); LYMPHOCYTES % (AUTO) 4.3 % (21.0-51.0); MEAN CORPUSCULAR HEMOGLOBIN 30.8 pg (27.0-33.0); MEAN CORPUSCULAR VOLUME 90.7 fL (79-99); MONOCYTES % (AUTO) 2.5 % (3.0-13.0); NEUTROPHILS % (AUTO) 93.1 % (40.0-77.0); PLATELET COUNT (AUTO) 411 K/uL (130-400); RED BLOOD CELL COUNT(AUTO) 2.86 MIL/uL (4.00-5.50); RED CELL DISTRIBUTION WIDTH 15.4 % (11.0-15.5); WHITE BLOOD COUNT (AUTO) 13.8 K/uL (4.8-10.8)
[2019-01-23] MEDS: FERROUS SULFATE 325 MG TABLET.DR PO SCH (05:57)
[2019-01-23] MEDS: LEVOTHYROXINE 100 MCG TABLET PO SCH (05:57)
[2019-01-23] MEDS: INSULIN HUMULIN R 100 UNIT/ML 3ML SQ SCH ×4 (05:58→22:41)
--- NOTE | 2019-01-23 06:27 | NUR ---
PAGED PT HAS NOT URINATE YET. NO COMPLAINTS VERBALIZED. NO BLADDER DISTENTION NOTED. PAGED ELECTRONIC ENGRAVER HAT BLOCKER FOR ELISE, SIMIN FALL, VIA ANSWERING SERVICE TO INFORM. AWAITING CALL BACK.
--- NOTE | 2019-01-23 07:00 | NUR ---
RE-PAGED NO CALL BACK FROM [facility], RE-PAGED VIA ANSWERING SERVICE. AWAITING CALL BACK.
[2019-01-23 07:15] VITALS: BP 145/76
--- NOTE | 2019-01-23 07:20 | NUR ---
REPORT REPORT GIVEN TO INCOMING SHIFT, CLAIR MUNOZ. TEST CASE DEVELOPER RUTH CALLED BACK FROM [facility] [employer]. REFERRED PT'S 0 URINE OUTPUT FOR THE WHOLE SHIFT AND SINCE BEFORE SX. NEW ORDERS GIVEN, PLEASE REFER TO CPOE.
--- NOTE | 2019-01-23 08:42 | NUR ---
ATTEMPTED TO INSERT [place] ON THE PATIENT ORDERED BUT PATIENT REFUSED. EXPLAINED TO HER THE NEED OF THE [place] AND SHE VERBALIZED THAT SHE WILL TRY TO URINATED AND DIDNT WANT TO [place] TO BE INSERTED
--- NOTE | 2019-01-23 09:12 | NUR ---
PATIENT REPORTED THAT SHE ALREADY URINATED AT ABOUT 100 MLS. NOTIFIED EYAD MANZO BARREL POLISHER AND SHE SAID NO NEED FOR [place]
[2019-01-23] MEDS: AMLODIPINE BESYLATE 5 MG TAB PO SCH (09:31)
[2019-01-23] MEDS: ASPIRIN 81 MG EC TAB PO SCH (09:31)
[2019-01-23] MEDS: FOLIC ACID/VITAMIN B COMP W-C 1 MG CAP/TAB PO SCH (09:31)
[2019-01-23] MEDS: POLYETHYLENE GLYCOL 3350 17 GM POWD.PACK PO SCH (09:31)
[2019-01-23] MEDS: FAMOTIDINE 20MG TAB 20 MG TAB PO SCH (09:31)
[2019-01-23] MEDS: HYDROCHLOROTHIAZIDE 25 MG TABLET PO SCH (09:31)
[2019-01-23] MEDS: DOCUSATE SODIUM 100 MG CAP PO SCH ×2 (09:31→22:33)
[2019-01-23 12:00] VITALS: BP 164/93
--- NOTE | 2019-01-23 14:45 | NUR ---
CM Note: EMS request faxed to [facility] CM faxed non-emergent EMS request to [facility], confirmation received. Pending [place]#. CM to cont to follow up.
--- NOTE | 2019-01-23 14:52 | NUR ---
CM Note: HNR pending ins auth CM met with pt discussed MD recommendations for short term rehab, pt and spouse agreeable. Spouse signed CASANDRA for HNR. Faxed order, clinicals, PT, and [facility], confirmation received. Spoke to Irina will come susanna pt, aware dcp once approved poss tomorrow. EMS filled out and faxed request for transport to [facility], confirmation received. Pt pending ins auth and acceptance. Primary nurse aware. CM to cont to follow up.
[2019-01-23 16:00] VITALS: BP 167/82
--- NOTE | 2019-01-23 16:31 | NUR ---
JOVANY QUINONESP OF [facility] NOTIFIED OF THE BLOOD SUGAR OF 392. NO ORDERS WAS GIVEN SHE INSTRUCTION TO JUST COVER ACCORDING SLIDING SCALE.
[2019-01-23 19:00] VITALS: BP 140/63
[2019-01-23 23:44] VITALS: BP 152/63
[2019-01-24] MEDS: HYDROCODONE/ACETAMINOPHEN 5/325 MG TAB PO PRN ×3 (00:51→20:27)
[2019-01-24 04:00] VITALS: BP 166/74
[2019-01-24 04:30] LABS: HEMATOCRIT 25.6 % (36-48); MEAN CORPUSCULAR HEMOGLOBIN 29.4 pg (27.0-33.0); MEAN CORPUSCULAR HGB CONC 32.6 g/dL (32.0-36.0); MEAN CORPUSCULAR VOLUME 90.2 fL (79-99); PLATELET COUNT (AUTO) 433 K/uL (130-400); RED BLOOD CELL COUNT(AUTO) 2.84 MIL/uL (4.00-5.50); RED CELL DISTRIBUTION WIDTH 15.6 % (11.0-15.5); WHITE BLOOD COUNT (AUTO) 18.2 K/uL (4.8-10.8)
[2019-01-24 04:36] LABS: CREATININE 1.5 mg/dL (0.5-1.5); POTASSIUM 3.6 mmol/L (3.5-5.1)
[2019-01-24] MEDS: INSULIN HUMULIN R 100 UNIT/ML 3ML SQ SCH ×4 (05:46→21:00)
[2019-01-24] MEDS: FERROUS SULFATE 325 MG TABLET.DR PO SCH (05:49)
[2019-01-24] MEDS: LEVOTHYROXINE 100 MCG TABLET PO SCH (05:49)
[2019-01-24] MEDS: SODIUM CHLORIDE 0.9% 1000ML 1,000 ML IV SCH (07:24)
[2019-01-24 07:30] VITALS: BP 197/72
--- NOTE | 2019-01-24 10:20 | NUR ---
BP 197/72, asymptomatic. Denies headache, blurred vision. Adminstered morning medications atenolol, hydrochlorothiazide, amlodipine, and lisinopril as ordered. Will recheck blood pressure once medication effect begins. Family at bedside, lights dimmed, bed low, locked, call torrez within reach.
[2019-01-24] MEDS: ASPIRIN 81 MG EC TAB PO SCH (10:39)
[2019-01-24] MEDS: FOLIC ACID/VITAMIN B COMP W-C 1 MG CAP/TAB PO SCH (10:39)
[2019-01-24] MEDS: DOCUSATE SODIUM 100 MG CAP PO SCH ×2 (10:39→20:27)
[2019-01-24] MEDS: FAMOTIDINE 20MG TAB 20 MG TAB PO SCH (10:39)
[2019-01-24] MEDS: LISINOPRIL 10 MG TABLET PO SCH (10:40)
[2019-01-24] MEDS: HYDROCHLOROTHIAZIDE 25 MG TABLET PO SCH (10:40)
[2019-01-24] MEDS: AMLODIPINE BESYLATE 5 MG TAB PO SCH (10:40)
[2019-01-24] MEDS: POLYETHYLENE GLYCOL 3350 17 GM POWD.PACK PO SCH (10:50)
[2019-01-24] MEDS: ATENOLOL 25 MG TABLET PO SCH (10:52)
[2019-01-24 11:00] VITALS: BP 184/68
--- NOTE | 2019-01-24 11:00 | NUR ---
BP on downward trend at 184/68 asymptomatic. Denies headache, blurred vision. Will continue to monitor effects of administered medications and recheck blood pressures. 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 NOrco 1 tab administered. Family at bedside, bed low locked, call torrez within reach.
--- NOTE | 2019-01-24 15:27 | NUR ---
[facility] Note: [facility] pending approval and delivery of Oxygen CM spoke to Cheli w/[place], stated clinicals w/Ri human resources advisor at this time pending to be approved. Pt pending approval and delivery of portable oxygen and stationary. Primary nurse aware. CM to cont to follow up. Addendum: 01/24/19 at 1621 by WESLEY VO LVN CM ENTERED in ERROR
[2019-01-24] MEDS: HYDRALAZINE HCL 20 MG/ML VIAL IV PRN (15:29)
--- NOTE | 2019-01-24 15:32 | NUR ---
BP remains elevated at 178/68, HR 95, asymptomatic. Patient denies headache, dizziness or blurred vision. Reports that regardless of medication, BP has always remained elevated. 10 mg Hydralazine administered IV Push per PRN BP order for systolic >160. Side effects discussed with patient and family, verbalized understanding.
[2019-01-24 16:00] VITALS: BP 178/68
--- NOTE | 2019-01-24 16:20 | NUR ---
CM Note: HNR ins auth CM spoke to Irlanda w/[employer], pt has ins auth. EMS arranged and faxed for today. Primary nurse to call [facility] once pt ready to DC. Primary nurse aware. CM to cont to follow up.
[2019-01-24] MEDS ORDERED: POLY17PO4 PO (17:25)
[2019-01-24] MEDS ORDERED: ATEN25TA PO (17:25)
[2019-01-24] MEDS ORDERED: DOCU-275 PO (17:25)
[2019-01-24] MEDS ORDERED: ACET-2247 PO (17:25)
[2019-01-24 19:15] VITALS: BP 164/69
[2019-01-24 23:57] VITALS: BP 166/78
[2019-01-25 03:53] VITALS: BP 163/66
[2019-01-25 04:19] LABS: HEMATOCRIT 28.3 % (36-48); MEAN CORPUSCULAR HEMOGLOBIN 30.4 pg (27.0-33.0); MEAN CORPUSCULAR HGB CONC 33.5 g/dL (32.0-36.0); MEAN CORPUSCULAR VOLUME 90.7 fL (79-99); PLATELET COUNT (AUTO) 396 K/uL (130-400); RED BLOOD CELL COUNT(AUTO) 3.12 MIL/uL (4.00-5.50); RED CELL DISTRIBUTION WIDTH 16.2 % (11.0-15.5); WHITE BLOOD COUNT (AUTO) 11.4 K/uL (4.8-10.8)
[2019-01-25 04:34] LABS: CREATININE 1.3 mg/dL (0.5-1.5); POTASSIUM 3.7 mmol/L (3.5-5.1)
[2019-01-25] MEDS: LEVOTHYROXINE 100 MCG TABLET PO SCH (05:48)
[2019-01-25] MEDS: FERROUS SULFATE 325 MG TABLET.DR PO SCH (05:48)
[2019-01-25] MEDS: INSULIN HUMULIN R 100 UNIT/ML 3ML SQ SCH ×3 (05:48→16:51)
[2019-01-25] MEDS: ASPIRIN 81 MG EC TAB PO SCH (07:39)
[2019-01-25] MEDS: HYDROCHLOROTHIAZIDE 25 MG TABLET PO SCH (07:39)
[2019-01-25] MEDS: FAMOTIDINE 20MG TAB 20 MG TAB PO SCH (07:39)
[2019-01-25] MEDS: POLYETHYLENE GLYCOL 3350 17 GM POWD.PACK PO SCH (07:39)
[2019-01-25] MEDS: DOCUSATE SODIUM 100 MG CAP PO SCH (07:40)
[2019-01-25] MEDS: AMLODIPINE BESYLATE 5 MG TAB PO SCH (07:40)
[2019-01-25] MEDS: FOLIC ACID/VITAMIN B COMP W-C 1 MG CAP/TAB PO SCH (07:40)
[2019-01-25] MEDS: ATENOLOL 25 MG TABLET PO SCH (07:49)
[2019-01-25] MEDS: LISINOPRIL 10 MG TABLET PO SCH (07:49)
[2019-01-25 08:00] VITALS: BP 177/79
[2019-01-25] MEDS ORDERED: ATENOLOL 25 MG TABLET PO SCH ×2 (09:00→21:00)
[2019-01-25] MEDS ORDERED: LISINOPRIL 10 MG TABLET PO SCH (09:00)
[2019-01-25 11:00] VITALS: BP 154/82
--- NOTE | 2019-01-25 12:10 | NUR ---
Nutrition Follow-up: Pt. S/P right TOBIN(01/22/19). Pt on 75gm CCD diet with good p.o. intake, as per pt. Labs reviewed(Alb 1.8). Spoke with pt. regarding protein supplementation and pt. agreed to try. LBM: 01/25/19. SR-17, elastic. Recommendations: 1) Rec. 30ml ProMod TID with meals. 2) Continue to monitor pt's nutritional status. 3) Consult RD as nutrition concerns arise. Addendum: 01/25/19 at [address] Amended: Links added.
[2019-01-25] MEDS ORDERED: ATEN25TA PO (15:44)
[2019-01-25] MEDS ORDERED: LISI10TA7 PO (15:44)
[2019-01-25] MEDS ORDERED: ACET-2247 PO (15:44)
[2019-01-25] MEDS ORDERED: CLON0.1T2 PO (15:44)
[2019-01-25 16:00] VITALS: BP 193/61
[2019-01-25] MEDS: HYDRALAZINE HCL 20 MG/ML VIAL IV PRN (16:47)
[2019-01-25] MEDS ORDERED: MORPHINE SULFATE 4 MG/1ML SYG ONE (16:55)
[2019-01-25] MEDS ORDERED: MORPHINE SULFATE 4 MG/1ML SYG IV SCH (17:00)
--- NOTE | 2019-01-25 17:31 | NUR ---
Provided report to Santa Taylor LVN at [facility]. Per Dr. Sargent no wound care orders for Rt BKA site, only to keep clean and dry. Hemovac removed at 16:[address] Sargent after adminstered 4 mg Morphine IV push for prophylactic pain management. Patient reports no pain, tolerated procedure of hemovac removal without distress.
== END 2019-01-25 18:50 | DRG 475 ==
LOC: EDH 09:26 → EDHIP 13:00 → OBSVTOIN 13:00 → 4CH 14:48
PROVIDERS: ADMIT Internal Medicine; ATTEND Internal Medicine
PROC: 30233N1 Transfusion of Nonautologous Red Blood Cells into Peripheral Vein, Percutaneous Approach (ICD-10-PCS; 2019-01-18)
PROC: 0Y6H0Z1 Detachment at Right Lower Leg, High, Open Approach (ICD-10-PCS; principal; 2019-01-22 11:52)
DX: T87.89 Other complications of amputation stump (principal); E11.52 Type 2 diabetes mellitus with diabetic peripheral angiopathy with gangrene; M86.9 Osteomyelitis, unspecified; D62 Acute posthemorrhagic anemia; E44.0 Moderate protein-calorie malnutrition; E11.69 Type 2 diabetes mellitus with other specified complication; E03.9 Hypothyroidism, unspecified; E11.22 Type 2 diabetes mellitus with diabetic chronic kidney disease; E78.5 Hyperlipidemia, unspecified; E87.6 Hypokalemia; I12.9 Hypertensive chronic kidney disease with stage 1 through stage 4 chronic kidney disease, or unspecified chronic kidney disease; K59.00 Constipation, unspecified; G89.18 Other acute postprocedural pain; N18.9 Chronic kidney disease, unspecified; N93.9 Abnormal uterine and vaginal bleeding, unspecified; Z89.431 Acquired absence of right foot; Z89.422 Acquired absence of other left toe(s); Z88.0 Allergy status to penicillin
CPT/HCPCS: 36415; 71045; 73630; 76856; 80048; 80053; 80076; 80202; 82948; 83735; 84132; 85025; 85027; 85610; 85651; 85730; 86850; 86900; 86901; 86922; 88304; 88311; 93005; 97039; G0378; G0463; J0330; J0360; J1100; J1815; J1885; J2001; J2175; J2250; J2270; J2405; J2704; J2710; J3010; J3370; J3480; J3490; J7030; P9016

== ENCOUNTER → 2019-02-18 | Outpatient (CLI) | payer MEDICARE ==
[~2019-02-18] MED LIST changes: +ACET-2247 PO; +ATEN25TA PO; +CLON0.1T2 PO; +DOCU-275 PO; +LISI10TA7 PO; +POLY17PO4 PO
== END | disposition home or self-care (01) ==
LOC: RAH 15:59
PROVIDERS: ATTEND Family Medicine
DX: R05 Cough (principal); M47.815 Spondylosis without myelopathy or radiculopathy, thoracolumbar region
CPT/HCPCS: 71046

== ENCOUNTER 2019-08-28 15:32 | Emergency (ER) | payer MEDICARE ==
[2019-08-28] MEDS ORDERED: POLYETHYLENE GLYCOL 3350 17 GM POWD.PACK ONE (17:23)
[2019-08-28] MEDS ORDERED: SODIUM CHLORIDE 0.9% 1000ML 1,000 ML IV ONE (18:07)
[2019-08-28] MEDS ORDERED: HYDRALAZINE HCL 20 MG/ML VIAL ONE (18:50)
== END 2019-08-28 19:54 | disposition home or self-care (01) ==
LOC: EDH 15:32
DX: K56.41 Fecal impaction (principal); I12.9 Hypertensive chronic kidney disease with stage 1 through stage 4 chronic kidney disease, or unspecified chronic kidney disease; E11.22 Type 2 diabetes mellitus with diabetic chronic kidney disease; N18.9 Chronic kidney disease, unspecified; E03.9 Hypothyroidism, unspecified; Z88.0 Allergy status to penicillin; Z98.890 Other specified postprocedural states
CPT/HCPCS: 36415; 74176; 80053; 81001; 82550; 83690; 84484; 85025; 93005; 96374; 99285; J0360; J7030

== ENCOUNTER 2019-11-17 12:27 | Observation (INO) | payer MEDICARE ==
[~2019-11-17] VITALS: Ht 157.5 cm; Wt 61.5 kg
[~2019-11-17 12:27] MED LIST changes: -ASPI-555 PO; +ASPI-556 PO
[2019-11-17 12:47] LABS: BASOPHILS % (AUTO) 0.8 % (0.0-5.0); EOSINOPHILS % (AUTO) 3.9 % (0.0-8.0); HEMATOCRIT 25.4 % (36-48); LYMPHOCYTES % (AUTO) 21.3 % (21.0-51.0); MEAN CORPUSCULAR HEMOGLOBIN 30.9 pg (27.0-33.0); MEAN CORPUSCULAR HGB CONC 33.1 g/dL (32.0-36.0); MEAN CORPUSCULAR VOLUME 93.4 fL (79-99); MONOCYTES % (AUTO) 6.5 % (3.0-13.0); NEUTROPHILS % (AUTO) 66.1 % (40.0-77.0); PLATELET COUNT (AUTO) 315 K/uL (130-400); RED BLOOD CELL COUNT(AUTO) 2.72 MIL/uL (4.00-5.50); RED CELL DISTRIBUTION WIDTH 13.3 % (11.0-15.5); WHITE BLOOD COUNT (AUTO) 9.2 K/uL (4.8-10.8)
[2019-11-17 12:55] LABS: INR 0.92 (0.85-1.15); PARTIAL THROMBOPLASTIN TIME 32.4 SEC (26.3-35.5)
[2019-11-17 12:57] LABS: CREATININE 2.5 mg/dL (0.5-1.5); POTASSIUM 3.6 mmol/L (3.5-5.1)
[2019-11-17 13:00] LABS: ALBUMIN 2.2 g/dL (3.5-5.0); BILIRUBIN,TOTAL 0.2 mg/dL (0.2-1.0); TOTAL PROTEIN, SERUM 6.1 g/dL (6.0-8.3)
[2019-11-17] MEDS ORDERED: HYDRALAZINE HCL 20 MG/ML VIAL ONE (14:10)
[2019-11-17] MEDS ORDERED: LORAZEPAM 2 MG/ML 1 ML VIAL ONE (15:28)
[2019-11-17] MEDS ORDERED: GLUCAGON 1MG KIT 1 MG ML IM PRN (16:30)
[2019-11-17] MEDS ORDERED: MAGNESIUM 2GM PREMIX 50ML 50 ML IV PRN (16:30)
[2019-11-17] MEDS ORDERED: ACETAMINOPHEN 325 MG TAB PO PRN (16:30)
[2019-11-17] MEDS ORDERED: DEXTROSE 50%-WATER 50 ML DISP.SYRIN IV PRN (16:30)
[2019-11-17] MEDS ORDERED: HYDRALAZINE HCL 20 MG/ML VIAL IV PRN (16:30)
[2019-11-17] MEDS ORDERED: ZOLPIDEM TARTRATE 5 MG TAB PO PRN (16:30)
[2019-11-17] MEDS ORDERED: LACTULOSE 20 GM/30 ML UDCUP PO PRN (16:30)
[2019-11-17] MEDS ORDERED: ONDANSETRON HCL 4 MG/2 ML VIAL IVP PRN (16:30)
[2019-11-17] MEDS: INSULIN HUMULIN R 100 UNIT/ML 3ML SQ SCH ×2 (16:30→21:00)
[2019-11-17] MEDS ORDERED: PANTOPRAZOLE 40 MG/VIAL ONE (16:46)
[2019-11-17 16:47] LABS: APPEARANCE,URINE TURBID (CLEAR); BILIRUBIN,URINE NEGATIVE (NEGATIVE); COLOR,URINE YELLOW (YELLOW); GLUCOSE, URINE (UA) 250 mg/dL (NEGATIVE); KETONES,URINE NEGATIVE (NEGATIVE); LEUKOCYTE ESTERASE ,URINE SMALL (NEGATIVE); NITRATE,URINE NEGATIVE (NEGATIVE); OCCULT BLOOD,URINE SMALL (NEGATIVE); PROTEIN,URINE >=300 mg/dL (NEGATIVE); UROBILINOGEN,URINE 0.2 mg/dL (0.2-1.0)
[2019-11-17 16:59] LABS: BACTERIA,URINE Rare /HPF (None Seen)
[2019-11-17 17:00] LABS: MUCUS,URINE Few LPF (None Seen); SQUAMOUS EPITHELIAL CELL,UR 0-2 /HPF (0-2); YEAST,URINE BUDDING Many /HPF (None Seen)
[2019-11-17] MEDS ORDERED: POLYETHYLENE GLYCOL 3350 17 GM POWD.PACK ONE (20:55)
[2019-11-17] MEDS ORDERED: DIPH1TAB PO (21:55)
[2019-11-17] MEDS ORDERED: DAPA10TA PO (21:55)
[2019-11-17] MEDS ORDERED: GLIP10TA9 PO (21:55)
[2019-11-17] MEDS ORDERED: FERR325T22 PO (21:55)
[2019-11-17] MEDS ORDERED: TRAM-355 PO (21:55)
[2019-11-17] MEDS ORDERED: BUSP10TA3 PO (21:55)
[2019-11-17] MEDS ORDERED: TRAZ-185 PO (21:55)
[2019-11-17] MEDS ORDERED: ROSU20TA31 PO (21:55)
[2019-11-17] MEDS ORDERED: TRAMADOL /APAP 37.5MG/325MG TAB PO PRN (22:00)
[2019-11-17] MEDS ORDERED: DIPHENOXYLATE HCL/ATROPINE 2.5/0.025 MG TAB PO PRN (22:00)
[2019-11-17] MEDS: PANTOPRAZOLE SODIUM 40 MG TABLET.DR PO SCH (22:30)
[2019-11-18 05:24] LABS: BASOPHILS % (AUTO) 0.4 % (0.0-5.0); EOSINOPHILS % (AUTO) 1.7 % (0.0-8.0); LYMPHOCYTES % (AUTO) 12.7 % (21.0-51.0); MEAN CORPUSCULAR HGB CONC 33.8 g/dL (32.0-36.0); MEAN CORPUSCULAR VOLUME 91.5 fL (79-99); MONOCYTES % (AUTO) 5.3 % (3.0-13.0); PLATELET COUNT (AUTO) 284 K/uL (130-400); RED BLOOD CELL COUNT(AUTO) 2.84 MIL/uL (4.00-5.50); RED CELL DISTRIBUTION WIDTH 13.1 % (11.0-15.5); WHITE BLOOD COUNT (AUTO) 12.6 K/uL (4.8-10.8)
[2019-11-18] MEDS: INSULIN HUMULIN R 100 UNIT/ML 3ML SQ SCH ×2 (05:49→11:30)
[2019-11-18 05:56] LABS: ALBUMIN 2.1 g/dL (3.5-5.0); BILIRUBIN,TOTAL 0.2 mg/dL (0.2-1.0); CREATININE 2.4 mg/dL (0.5-1.5); MAGNESIUM 2.1 mg/dL (1.80-2.40); PHOSPHORUS 4.1 mg/dL (2.5-4.9); POTASSIUM 4.3 mmol/L (3.5-5.1); TOTAL PROTEIN, SERUM 6.1 g/dL (6.0-8.3)
--- NOTE | 2019-11-18 06:17 | NUR ---
BLOOD PRESSURE 205/46, MEDICATED PER MARS. HYDRALAZINE 10MG GIVEN IVP SLOWLY. NEW BLOOD PRESSURE AT THIS TIME IS 158/33. PATIENT AWAKE AND ALERT, STATES SHE IS SCARED AND CANNOT BE LEFT ALONE. PATIENT STATES SHE WANTS TO GO HOME ALREADY. REDIRECTED PATIENT THAT NURSE WILL LET MD KNOW IN AM. PATIENT REPOSITIONED FOR COMFORT. TOTAL CARE RENDERED Q2H AND PRN. LARGE BM NOTED. RESP EVEN AND UNLABORED. NO SOB NOTED. ON ROOM AIR. VITALS STABLE. AFEBRILE. BED REST. FALL PRECAUTIONS IN PLACE DUE TO POOR SAFETY AWARENESS. SIDE RAILS UP X2 CALL LIGHT WITHIN REACH. WILL CONTINUE TO BE OBSERVED. Addendum: 11/18/19 at 0703 by ROYA GIFFORD RN RN Amended: Links added.
[2019-11-18 07:30] VITALS: BP 155/37
--- NOTE | 2019-11-18 07:30 | NUR ---
PATIENT IS AWAKE AND CONFUSED AT TIMES. NOT ORIENTED TO TIME AND SITUATION. DAUGHTER OSWALDO CALLED AND WANTS TO TAKE HER MOTHER HOME AGAINST MEDICAL ADVICE. PATIENT WAS ADMITTED FOR CONSTIPATION AND HAS HAD A BOWEL MOVEMENT LAST NIGHT. HER ADMITTING DOCTOR HAS NOT ROUNDED AT THIS TIME.
[2019-11-18] MEDS ORDERED: GLIPIZIDE 5 MG TABLET PO SCH (08:00)
[2019-11-18] MEDS ORDERED: LEVOTHYROXINE 100 MCG TABLET PO SCH (09:00)
[2019-11-18] MEDS ORDERED: FERROUS SULFATE 325 MG TABLET.DR PO SCH (09:00)
[2019-11-18] MEDS ORDERED: ASPIRIN 81 MG EC TAB PO SCH (09:00)
[2019-11-18] MEDS ORDERED: ATENOLOL 25 MG TABLET PO SCH (09:00)
[2019-11-18] MEDS ORDERED: NON-FORMULARY MEDICATION 1 EACH (Ferrous Sulfate 325 MG) PO SCH (09:00)
[2019-11-18] MEDS ORDERED: **HM** FARXIGA 10MG PO SCH (09:00)
[2019-11-18] MEDS ORDERED: POLYETHYLENE GLYCOL 3350 17 GM POWD.PACK PO SCH (09:00)
[2019-11-18] MEDS ORDERED: BUSPIRONE HCL 5 MG TABLET PO SCH (09:00)
[2019-11-18] MEDS: PANTOPRAZOLE SODIUM 40 MG TABLET.DR PO SCH (09:32)
--- NOTE | 2019-11-18 12:45 | NUR ---
PATIENT TAKEN HOME AGAINST MEDICAL ADVICE BY FAMILY. INFORMED JONATHON QUINONESP COVERING FOR [facility]. IV'S REMOVED, BELONGINGS GIVEN TO PATIENT.
--- NOTE | 2019-11-18 14:10 | NUR ---
SAW PATIENT BRIEFLY AT BEDSIDE EARLIER TODAY, PRIOR TO LEAVING [place], INITIAL DETAILED CM ASSESSMENT DEFERED, PT UPSET AND JUST WANTED TO LEAVE THE HOSPITAL. Addendum: 11/18/19 at 1411 by FLORI LANDAVERDE RN CM Amended: Links added.
[2019-11-18] MEDS ORDERED: ATORVASTATIN CALCIUM 40 MG TABLET PO SCH (21:00)
[2019-11-18] MEDS ORDERED: TRAZODONE HCL 50 MG TAB PO SCH (21:00)
== END 2019-11-18 12:30 | disposition left against medical advice (07) ==
LOC: EDH 12:27 → EDHIP 16:30 → 3BH 19:54 → 3DH 20:07
PROVIDERS: ADMIT Internal Medicine Critical Care Medicine; ATTEND Internal Medicine Critical Care Medicine
DX: K59.00 Constipation, unspecified (principal); Z20.828 Contact with and (suspected) exposure to other viral communicable diseases; J90 Pleural effusion, not elsewhere classified; N39.0 Urinary tract infection, site not specified; I12.9 Hypertensive chronic kidney disease with stage 1 through stage 4 chronic kidney disease, or unspecified chronic kidney disease; E11.22 Type 2 diabetes mellitus with diabetic chronic kidney disease; E11.51 Type 2 diabetes mellitus with diabetic peripheral angiopathy without gangrene; N18.9 Chronic kidney disease, unspecified; E03.9 Hypothyroidism, unspecified; K57.30 Diverticulosis of large intestine without perforation or abscess without bleeding; Z88.0 Allergy status to penicillin; Z89.511 Acquired absence of right leg below knee
CPT/HCPCS: 36415 ×2; 74176; 80053 ×2; 81001; 82270; 82550; 82948 ×5; 83690; 83735; 84100; 84484; 85025 ×2; 85610; 85730; 86850; 86900; 86901; 87040 ×2; 87088; 87426; 93005; 96374; 97161; 97530; 99285; C9113; G0378 ×9; G8981; G8982; G8983; J0360 ×2; J2060; U0003